=== PATIENT | female | born 2000 | race Caucasian/White ===

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

== ENCOUNTER 2022-02-16 23:08 | Emergency (ER) | payer MEDICAID ==
[~2022-02-16] VITALS: Ht 167.6 cm; Wt 59.0 kg
[2022-02-16 23:26] VITALS: BP_SYST 112
--- NOTE | 2022-02-16 23:29 | NUR ---
STATES HAVING RIGHT RIB PAIN X 1 HOUR. NO TRAUMA.
--- NOTE | 2022-02-17 00:28 | NUR ---
Pt BIB dad C/O right rib pain AOX4 VSS Able to make needs known Will continue to monitor
[2022-02-17] MEDS ORDERED: HYDR-3917 PO (00:42)
[2022-02-17] MEDS ORDERED: NAPR-686 PO (00:42)
[2022-02-17] MEDS ORDERED: ACETAMINOPHEN/CODEINE 300 MG-30 MG TABLET PO ONE (00:45)
[2022-02-17 01:01] VITALS: BP_SYST 120
--- NOTE | 2022-02-17 01:02 | NUR ---
EDUARD RN PT STABLE FOR D/C TO HOME WITH . TO LOBBY AMB WITH ALL PAPERWORK IN HAND. PT VERBALIZES UNDERSTANDING OF QAFTERCARE/ RX ANSWERING SERVICE TELEPHONE OPERATOR
== END 2022-02-17 01:01 | disposition home or self-care (01) ==
LOC: SED 23:08
DX: R07.89 Other chest pain (principal); R07.81 Pleurodynia; R10.9 Unspecified abdominal pain; Z79.899 Other long term (current) drug therapy
CPT/HCPCS: 71046-TC; 99283